=== PATIENT | male | born 1990 | race Caucasian/White ===

== ENCOUNTER 2021-03-23 23:08 | Emergency (ER) | payer OTHER ==
[~2021-03-23] VITALS: Ht 165.1 cm; Wt 65.8 kg
[2021-03-23 23:12] VITALS: BP_SYST 128
[2021-03-23 23:30] VITALS: BP_SYST 128
== END 2021-03-23 23:30 ==
LOC: SED 23:08
DX: F10.10 Alcohol abuse, uncomplicated (principal); Y90.9 Presence of alcohol in blood, level not specified; V49.49XA Driver injured in collision with other motor vehicles in traffic accident, initial encounter; Y93.89 Activity, other specified; Y92.89 Other specified places as the place of occurrence of the external cause; Y99.8 Other external cause status
CPT/HCPCS: 99283